=== PATIENT | female | born 1985 | race Two or more races ===

== ENCOUNTER 2021-04-02 11:50 | Emergency (ER) | payer BC ==
[2021-04-02 12:44] LABS: #Basophils 0.1 10x3/uL (0.0-0.2); #Eosinphils 0.1 10x3/uL (0.0-0.5); #Monocytes 0.4 10x3/uL (0.0-1.1); #Neutrophils 5.3 10x3/uL (1.5-8.4); %Basophils 0.7 % (0.0-2.0); %Eosinophils 1.3 % (0.0-6.0); %Monocytes 4.3 % (0.0-10.0); %Neutrophils 62.2 % (40.0-75.0); Hemoglobin 9.3 g/dL (12.0-15.5); Mean Corpuscular HGB CONC 31.4 g/dL (32.0-36.0); Mean Corpuscular Hemoglobin 19.1 pg (27.0-33.0); Mean Corpuscular Volume 60.9 fl (81.6-98.3); Mean Platelet Volume 10.8 fl (7.4-10.4); Platelet Count 426 10x3/uL (150-450); RBC Distribution Width 19.6 % (11.5-14.5); Red Blood Cell (RBC) Count 4.86 10x6/uL (3.90-5.03); White Blood Cell (WBC) Count 8.4 10x3/uL (3.5-10.5)
[2021-04-02 13:11] LABS: Elliptocytes SLIGHT = 2-5 cells (100X) (0-1/hpf); Ovalocytes MODERATE= 6-15 cells (100X) (0-1/hpf)
[2021-04-02 13:14] LABS: Platelet Morphology Comment Appears Adequate
[2021-04-02] MEDS ORDERED: Ondansetron PF 4 MG/2 ML Vial ONE (13:36)
[2021-04-02] MEDS ORDERED: Morphine 4 MG/ML VIAL ONE (13:36)
[2021-04-02] MEDS ORDERED: Ketorolac Tromethamine 30 MG/ML VIAL ONE (15:15)
== END 2021-04-02 15:23 | disposition home or self-care (01) ==
LOC: CSHERS 11:50
DX: O00.201 Right ovarian pregnancy without intrauterine pregnancy (principal)
CPT/HCPCS: 76856; 84702; 85025; 86900; 86901; 96372; 96374; 96375; J1885; J2270; J2405

== ENCOUNTER 2021-10-28 13:58 | Outpatient (CLI) | payer BC | END 2021-10-28 13:59 | disposition home or self-care (01) | LOC: CSHRAD 13:58 | PROVIDERS: ATTEND Obstetrics & Gynecology | DX: Z31.41 Encounter for fertility testing (principal); N97.1 Female infertility of tubal origin | CPT/HCPCS: 58340; 74740 ==